=== PATIENT | female | born 1995 | race African-American/Black ===

== ENCOUNTER 2017-01-13 17:29 | Emergency (ER) | payer OTHER ==
[~2017-01-13] VITALS: Ht 157.5 cm; Wt 86.2 kg
[~2017-01-13 17:29] MED LIST: PERCOCET 5-3251 EACH PO
[2017-01-13 18:17] LABS: URINE BILIRUBIN NEGATIVE (Negative); URINE BLOOD NEGATIVE (Negative); URINE COLOR YELLOW; URINE GLUCOSE-RANDOM* NEGATIVE (Negative); URINE KETONES NEGATIVE (Negative); URINE LEUKOCYTES-REFLEX NEGATIVE (Negative); URINE PROTEIN (DIPSTICK) NEGATIVE (Negative); URINE SPECIFIC GRAVITY 1.015 (1.003-1.035); URINE UROBILINOGEN 0.2 E.U./dl (0.2-1.0)
[2017-01-13] MEDS ORDERED: FLEXERIL PO (19:32)
[2017-01-13 20:02] VITALS: BP 116/78
== END 2017-01-13 20:04 | disposition home or self-care (01) ==
LOC: ER 17:29
PROVIDERS: Emergency Medicine
DX: M54.5 Low back pain (principal); E28.2 Polycystic ovarian syndrome